=== PATIENT | male | born 2000 ===

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

== ENCOUNTER 2019-05-13 22:09 | Emergency (ER) | payer BC ==
--- NOTE | 2019-05-13 23:46 | ED ---
Laceration/Wound HPI - HPI Summary HPI Summary: 18-year-old left-hand dominant male with no significant past medical history and is not on anticoagulation with no bleeding disorder presents to the emergency department today with a 0.5 cm laceration between the webbing of his middle and index finger. Patient sustained this laceration with a knife while cutting the knife away. he has full range of motion of the digits and endorses 0 out of 10 pain. Bleeding is resolved. Patient states his last tetanus shot was "over 10 years ago". Patient otherwise feels well and denies fever, chest pain, abdominal pain, shortness of breath, pain with urination, rash. Surgical history and family history noncontributory. - History of Current Complaint Stated Complaint: FINGER LAC PER PT Time Seen by Provider: 05/13/19 23:45 Hx Obtained From: Patient Mechanism of Injury: Sharp/Blunt Trauma Onset/Duration: Sudden Onset Aggravating: Movement Timing: Constant Onset Severity: Mild Current Severity: Mild Pain Intensity: 3 Pain Scale Used: 0-10 Numeric Associated Signs & Symptoms: Pain - Allergy/Home Medications Allergies/Adverse Reactions: Allergies Allergy/AdvReac Type Severity Reaction Status Date / Time No Known Allergies Allergy Verified 01/11/18 16:38 PMH/Surg Hx/FS Hx/Imm Hx - Surgical History Surgery Procedure, Year, and Place: wisdom teeth extraction Infectious Disease History: No Infectious Disease History: Denies: Traveled Outside the [place] in Last 30 Days - Family History Known Family History: Positive: Hypertension - Social History Alcohol Use: Occasionally Substance Use Type: Reports: None Smoking Status (MU): Never Smoked Tobacco Review of Systems Constitutional: Negative Eyes: Negative ENT: Negative Cardiovascular: Negative Respiratory: Negative Gastrointestinal: Negative Genitourinary: Negative Musculoskeletal: Negative Skin: Negative Neurological: Negative Psychological: Normal All Other Systems Reviewed And Are Negative: Yes Physical Exam - Summary Physical Exam Summary: 0.5 cm deep laceration noted to the webbing between the middle and index finger. Patient has full range of motion and is neurovascularly intact. Triage Information Reviewed: Yes Vital Signs On Initial Exam: Initial Vitals Temp Pulse Resp BP Pulse Ox 98.0 F 84 18 134/67 98 05/13/19 22:12 05/13/19 22:12 05/13/19 22:12 05/13/19 22:12 05/13/19 22:12 Vital Signs Reviewed: Yes Appearance: Positive: Well-Appearing, No Pain Distress, Well-Nourished Skin: Positive: Warm, Skin Color Reflects Adequate Perfusion Eyes: Positive: EOMI, SYED ENT: Positive: Hearing grossly normal Respiratory/Lung Sounds: Positive: Clear to Auscultation, Breath Sounds Present Cardiovascular: Positive: RRR, S1, S2 Abdomen Description: Positive: Nontender, Soft Musculoskeletal: Positive: Strength/ROM Intact Neurological: Positive: Sensory/Motor Intact, Alert, Oriented to Person Place, Time, Normal Gait, Facial Symmetry, Speech Normal Psychiatric: Positive: Normal, Affect/Mood Appropriate AVPU Assessment: Alert Procedures - Sedation Patient Received Moderate/Deep Sedation with Procedure: No - Laceration/Wound Repair 1 Location: upper extremity Description: Linear Anesthesia: Local, 1.0% Length, Depth and Shape: 0.5 cm in length by 0.5 cm in depth Betadine Prep?: No Irrigated w/ Saline (ccs): 200 Laceration/Wound Explored: clean Closure: Single Layer Suture Type: Nylon Number of Sutures: 3 - 5-0 nylon suture Layer Closure?: No Sterile Dressing Applied?: Yes Diagnostics - Vital Signs Vital Signs Temp Pulse Resp BP Pulse Ox 05/13/19 22:12 98.0 F 84 18 134/67 98 - Laboratory Lab Statement: Any lab studies that have been ordered have been reviewed, and results considered in the medical decision making process. Laceration Repair Course/Dx - Course Course Of Treatment: Vision was evaluated in the emergency department for laceration. Patient was in exam vitals are stable. Laceration was approximated using 3 5-0 nylon sutures placed in simple interrupted fashion. Patient was neurovascularly intact before and after procedure. Patient tolerated procedure well. Minimal blood loss during procedure. Patient was discharged with outpatient follow-up to have sutures removed in 8 days. Tetanus vaccination updated in emergency department - Differential Dx Differental Diagnoses: Laceration, Puncture Wound, Tendon Laceration - Clinical Impression Provider Diagnoses: Laceration of right hand Discharge ED - Sign-Out/Discharge Documenting (check all that apply): Patient Departure - Discharge Plan Condition: Stable Disposition: HOME Patient Education Materials: Care For Your Stitches (ED), Laceration (ED) Referrals: No Primary Care Phys,[facility] [Primary Care Provider] - Additional Instructions: Please have your sutures removed in this emergency department or at [facility] in 8 days. You may take ibuprofen 600 mg every 6 hours as needed for pain. Please keep your wound dry for 24 hours and then you may remove the dressing and clean it with warm soapy water and pat it dry. Reapply dressing daily after 24 hours until seen for suture removal. Please return to the emergency department immediately if you develop any new or worsening symptoms. - Billing Disposition and Condition Condition: STABLE Disposition: Home
[2019-05-13] MEDS ORDERED: Tetan/Diph/Pertus SYR(Tdap)* 0.5 ML SYR(BOOSTRIX) use SYR contains LATEX IM ONE (23:52)
[2019-05-14 00:46] VITALS: BP 118/71
== END 2019-05-14 00:40 | disposition home or self-care (01) ==
LOC: ED 22:09
DX: S61.411A Laceration without foreign body of right hand, initial encounter (principal); Z23 Encounter for immunization; W26.0XXA Contact with knife, initial encounter; Y92.9 Unspecified place or not applicable
CPT/HCPCS: 12001; 90471; 90715; 99282